=== PATIENT | female | born 1950 | race Caucasian/White ===

== ENCOUNTER 2021-03-04 11:11 | Outpatient (CLI) | payer MEDICARE, OTHER, SELFPAY ==
[2021-03-04 11:26] VITALS: BP 117/70; PULSE 88; RESP 23; TEMP 36.3; O2SAT 93; BMI 24.3
[2021-03-04 12:35] VITALS: BP 102/59; PULSE 70; RESP 21; TEMP 36.8; O2SAT 97
[2021-03-04 13:34] VITALS: BP 103/60; PULSE 72; RESP 20; TEMP 36.7; O2SAT 99
== END 2021-03-04 11:12 | disposition home or self-care (01) ==
DX: U07.1 COVID-19 (principal)
CPT/HCPCS: 96365

== ENCOUNTER → 2022-08-01 13:09 | Outpatient (BNVA) | payer MEDICARE, SELFPAY | PROVIDERS: PCP Family Medicine; Visit Provider Dermatology | DX: L57.0 Actinic keratosis (principal); L81.4 Other melanin hyperpigmentation; L21.8 Other seborrheic dermatitis; Z85.828 Personal history of other malignant neoplasm of skin; D18.01 Hemangioma of skin and subcutaneous tissue | CPT/HCPCS: 17000; 17003; 99214 ==

== ENCOUNTER → 2023-02-22 15:04 | Outpatient (BNVA) | payer MEDICARE, SELFPAY | PROVIDERS: PCP Family Medicine; Visit Provider Dermatology | DX: L57.0 Actinic keratosis (principal); L81.4 Other melanin hyperpigmentation; L21.8 Other seborrheic dermatitis; D18.01 Hemangioma of skin and subcutaneous tissue; Z08 Encounter for follow-up examination after completed treatment for malignant neoplasm; Z85.828 Personal history of other malignant neoplasm of skin | CPT/HCPCS: 99214 ==